=== PATIENT | female | born 1980 | race American Indian/Alaskan Native ===

== ENCOUNTER 2023-05-30 19:26 | Emergency (ER) | payer OTHER ==
[~2023-05-30] VITALS: Ht 160 cm; Wt 87.0 kg
[2023-05-30 21:02] LABS: BILIRUBIN, URINE NEGATIVE (negative); BLOOD/HGB, URINE LARGE (Negative); KETONE, URINE NEGATIVE (Negative); LEUK ESTERASE, URINE MODERATE (negative); NITRITE, URINE POSITIVE (negative); PH, URINE 5.5 (5-7)
[2023-05-30 21:08] LABS: EPITHELIAL CELLS, URINE SQUAMOUS 1+ /lpf (0-1+); RED BLOOD CELLS, URINE >50 /hpf (0-5); WHITE BLOOD CELLS, URINE >50 /HPF (0-5)
[2023-05-30 21:09] LABS: BACTERIA, URINE 2+ /hpf (negative); CASTS, URINE NONE SEEN \\lpf; CRYSTALS, URINE NONE SEEN (0-1+)
[2023-05-30 21:10] LABS: REFLEX CULTURE, URINE Yes (No)
[2023-05-30] MEDS ORDERED: CEFDINIR300 MG PO (21:39)
[2023-05-30] MEDS ORDERED: PYRIDIUM200 MG PO (21:39)
[2023-05-30 21:52] VITALS: BP 148/95
== END 2023-05-30 21:52 | disposition home or self-care (01) ==
LOC: ED 19:26
PROVIDERS: Family Medicine
DX: N39.0 Urinary tract infection, site not specified (principal); Z88.1 Allergy status to other antibiotic agents
CPT/HCPCS: 81001; 84703

== ENCOUNTER 2024-08-05 16:53 | Emergency (ER) | payer BC ==
[~2024-08-05] VITALS: Ht 160 cm; Wt 87.1 kg
[2024-08-05 17:31] LABS: BILIRUBIN, URINE NEGATIVE (negative); BLOOD/HGB, URINE LARGE (Negative); KETONE, URINE TRACE (Negative); LEUK ESTERASE, URINE MODERATE (negative); NITRITE, URINE NEGATIVE (negative); PH, URINE 5.5 (5-7)
[2024-08-05 17:37] LABS: WHITE BLOOD CELLS, URINE >50 /HPF (0-5)
[2024-08-05 17:40] LABS: CRYSTALS, URINE NONE SEEN (0-1+); EPITHELIAL CELLS, URINE SQUAMOUS 1+ /lpf (0-1+)
[2024-08-05 17:41] LABS: BACTERIA, URINE 2+ /hpf (negative); CASTS, URINE NONE SEEN \\lpf; COLLECTION TYPE, URINE CLEAN CATCH; REFLEX CULTURE, URINE Yes (No)
[2024-08-05 18:00] VITALS: BP 139/92
[2024-08-05] MEDS ORDERED: CEPHALEXIN MONOHYDRATE 500 MG CAP PO ONE (18:00)
[2024-08-05] MEDS ORDERED: PHENAZOPYRIDINE HCL 100 MG TAB PO ONE (18:00)
== END 2024-08-05 18:00 | disposition home or self-care (01) ==
LOC: ED 16:53
PROVIDERS: Emergency Medicine
DX: N30.00 Acute cystitis without hematuria (principal); Z88.1 Allergy status to other antibiotic agents
CPT/HCPCS: 81001; 87077; 87088; 87186; 99283; A9270

== ENCOUNTER 2024-10-26 08:06 | Emergency (ER) | payer BC ==
[~2024-10-26] VITALS: Ht 160 cm; Wt 85.8 kg
[~2024-10-26 08:06] MED LIST: CEFDINIR300 MG PO; CEPHALEXIN500 M1 PO; DIFLUCAN200 MG PO; PYRIDIUM200 MG PO
[2024-10-26] MEDS ORDERED: AMOXICILLIN500 MG PO (08:20)
[2024-10-26 08:32] VITALS: BP 142/108
== END 2024-10-26 08:32 | disposition home or self-care (01) ==
LOC: ED 08:06
DX: N39.0 Urinary tract infection, site not specified (principal); Z88.1 Allergy status to other antibiotic agents
CPT/HCPCS: 99283

== ENCOUNTER 2025-02-23 12:57 | Emergency (ER) | payer BC ==
[~2025-02-23] VITALS: Ht 160 cm; Wt 75.0 kg
[~2025-02-23 12:57] MED LIST changes: +AMOXICILLIN500 MG PO
[2025-02-23 13:30] LABS: BASOPHILS 1.0 % (0.1-1.2); EOSINOPHILS 0.8 % (0.7-5.8); LYMPHOCYTES 33.6 % (19.3-51.7); MCH 30.4 PG (25.6-32.2); MCHC 34.4 g/dL (32.2-35.5); MCV 88.4 fL (79.4-94.8); MONOCYTES 7.6 % (4.7-12.5); NEUTROPHILS 56.6 % (34.0-71.1); RBC 4.73 M/uL (3.93-5.22)
[2025-02-23 13:30] LABS: BLOOD/HGB, URINE NEGATIVE (Negative); KETONE, URINE NEGATIVE (Negative); LEUK ESTERASE, URINE NEGATIVE (negative); NITRITE, URINE NEGATIVE (negative)
[2025-02-23 13:42] LABS: ALT (SGPT) 38.0 U/L (14-59); AST (SGOT) 18.0 U/L (15-37); GLOMERULAR FILTRATION RATE,EST 103.0 mL/min (>60); PROTEIN, TOTAL 7.7 g/dL (6.4-8.2); UREA NITROGEN 11.0 mg/dL (7-18)
[2025-02-23] MEDS ORDERED: HYDROmorphone HCL 1 MG/ML SYR IV PRN (14:45)
[2025-02-23] MEDS ORDERED: ONDANSETRON ODT8 MG PO (16:23)
[2025-02-23] MEDS ORDERED: HYDROCODON-ACE1 EA10 PO (16:23)
[2025-02-23 16:35] VITALS: BP 135/90
== END 2025-02-23 16:35 | disposition home or self-care (01) ==
LOC: ED 12:57
PROVIDERS: Emergency Medicine
DX: R10.31 Right lower quadrant pain (principal); N20.0 Calculus of kidney; Z88.1 Allergy status to other antibiotic agents; Z79.899 Other long term (current) drug therapy
CPT/HCPCS: 36415; 74177; 80053; 81003; 83690; 84703; 85025; 96374; 99284-25; J1171; Q9967